=== PATIENT | male | born 1990 | race Caucasian/White ===

== ENCOUNTER 2022-01-23 22:47 | Emergency (ER) | payer BC, SELFPAY ==
--- NOTE | ~2022-01-23 | XR_ITS ---
XR clavicle LT, XR shoulder LT min 2V 01/23/2022 23:23 INDICATION: Left shoulder pain after fall. PROCEDURE: 2 views left clavicle and 4 views left shoulder COMPARISON: No prior studies for comparison. FINDINGS: Fracture, dislocation or subluxation is not identified. The soft tissues appear within norm al limits. No foreign bodies are identified. IMPRESSION: 1: NO ACUTE BONE OR JOINT ABNORMALITY IDENTIFIED. Reviewed, dictated and finalized at location A. IMPRESSION: 1: NO ACUTE BONE OR JOINT ABNORMALITY IDENTIFIED.
[2022-01-23 23:02] VITALS: BP 126/80; PULSE 89; RESP 18; TEMP 36.6; O2SAT 98
[2022-01-23] MEDS: KETOROLAC (*BKC) 60 MG/2 ML VIAL IM (23:30)
--- NOTE | 2022-01-23 23:36 | ED.UPPEXIN ---
HPI - Extremity Injury (Upper) General Chief Complaint: Extremity Injury, Upper Stated Complaint: left shoulder injury Source: patient Mode of arrival: ambulatory Limitations: no limitations History of Present Illness HPI narrative: this is a 31-year-old gentleman that presents with some left shoulder and clavicle discomfort and pain that he rates about an 8/10 has decreased range of motion in his left shoulder after he was injured while tackled playing football earlier today, did not take any medication for his pain has decreased range of motion there is some point tenderness in the distal clavicular area of his left shoulder. MD complaint: injury to: left Onset (ago): hour(s) Other Extremity Injury: Left: shoulder ( pain and decreased range of motion) Handedness: right Place: outdoors Severity: moderate Severity scale (1-10): 8 Relieving factors: immobilization Exacerbating factors: movement of extremity Context: fall Associated symptoms: denies other symptoms Related Data Allergies Allergy/AdvReac Type Severity Reaction Status Date / Time No Known Allergies Allergy Verified 01/23/22 22:58 Review of Systems Review of Systems: All systems reviewed & are unremarkable except as noted in HPI and below PMFSH Past Medical History Medical History Patient denies medical problems Exam Const: General: healthy appearing and no acute distress HENMT: Head: normal to inspection Ears: external ears normal General nose exam: Normal external nose present Eyes: Conjunctivae: conjunctivae normal EOM: EOMs intact bilaterally Neck: Neck: normal visual inspection, no lymphadenopathy and no meningeal signs Chest: Chest palpation & inspection: normal inspection of the chest Resp: Effort & Inspection: normal respiratory effort Auscultation: clear to auscultation bilaterally Cardio: Rate: regular rate Rhythm: regular rhythm GI: GI Palp: Yes Soft to palpation Auscultation: normal bowel sounds Skin: General skin exam: normal color Rashes: no rashes Wounds: no wounds Neuro: General: patient oriented x3 Cranial nerves: Yes Nystagmus not present Speech: normal speech Extrem: Other: decreased range of motion and tenderness in the lateral aspect of his left clavicle and upper shoulder area Psych: Mental Status: mental status grossly normal Affect: normal affect Course Course Emergency Course: x-rays reviewed show no acute fractures no dislocations, and will place patient in a sling and advise patient follow-up with primary care physician for further monitoring with possibly MRI. Vital Signs Vital signs: Vital Signs Temperature 36.6 C 01/23/22 23:02 Pulse Rate 89 01/23/22 23:02 Respiratory Rate 18 01/23/22 23:02 Blood Pressure 126/80 01/23/22 23:02 Pulse Oximetry 98 01/23/22 23:02 Oxygen Delivery Room Air 01/23/22 23:02 Temperature 36.6 C 01/23/22 23:02 Pulse Rate 89 01/23/22 23:02 Respiratory Rate 18 01/23/22 23:02 Blood Pressure 126/80 01/23/22 23:02 Pulse Oximetry 98 01/23/22 23:02 Oxygen Delivery Room Air 01/23/22 23:02 Critical Care Time Critical Care Time Critical Care Time: No Discharge Plan Discharge Clinical Impression: Rotator cuff strain Qualifiers: Encounter type: initial encounter Laterality: left Qualified Code(s): S46.012A - Strain of muscle(s) and tendon(s) of the rotator cuff of left shoulder, initial encounter Patient Disposition: Home, Self-Care Condition: Stable Instructions: Antibiotic Form, Rotator Cuff Injury (ED) Additional Instructions: take medicine as prescribed and follow-up with primary care physician within 1 week for further evaluation and treatment. Prescriptions: New tramadol [Ultram] 50 mg tablet 50 mg PO Q6H PRN (Reason: pain) Qty: 20 0RF Follow-up/Referrals: Teodoro Mandel M.D. [Primary Care Provider] - Time of Disposition: 23:42
[2022-01-23 23:51] VITALS: BP 120/71; PULSE 82; RESP 18; O2SAT 97
== END 2022-01-23 23:52 | disposition home or self-care (01) ==
PROVIDERS: Emergency Provider Emergency Medicine; PCP Family Medicine
DX: S46.012A Strain of muscle(s) and tendon(s) of the rotator cuff of left shoulder, initial encounter (principal)
CPT/HCPCS: 73000; 73030; 96372; 99283; A4565; J1885

== ENCOUNTER 2022-02-05 11:05 | Emergency (ER) | payer BC, SELFPAY ==
--- NOTE | ~2022-02-05 | CT_ITS ---
EXAMINATION: CT abdomen pelvis wo con DATE: 02/05/2022 12:12 INDICATION: Immature. Bilateral flank pain. Penile discharge. TECHNIQUE: Computed tomography (CT) of the abdomen and pelvis was performed without intravenous contr ast. Automated exposure control and iterative reconstruction technique were employed. The dose-length product was 376.98 mGy-cm. COMPARISON: None FINDINGS: 1. Bilateral small calcified pulmonary nodules in the bilateral lower lungs consistent with old granu lomatous disease. Heart size is normal. No pericardial or pleural effusion. Liver, gallbladder, splee n, pancreas and bilateral adrenal glands are normal. Kidneys and ureters are normal with no urolithia sis, hydroureteronephrosis or perinephric/ureteral stranding. Bowels including the appendix are peggy l. Bladder is unremarkable. No free intraperitoneal gas or fluid. No pathologically enlarged abdomina l or pelvic lymphadenopathy. Mild thoracolumbar spondylosis with a few Schmorl's nodes in the lower t horacic and upper lumbar spine. IMPRESSION: 1. No urolithiasis or acute intra-abdominal/pelvic process. Reviewed, dictated and finalized at location A.
[2022-02-05 11:18] VITALS: BP 124/79; PULSE 88; RESP 18; TEMP 37.2; O2SAT 99
--- NOTE | 2022-02-05 11:56 | ED.ABDPAIN ---
HPI - Abdominal Pain General Chief Complaint: Urogenital-Male Stated Complaint: Urinating blood Started today Time Seen by Provider: 02/05/22 11:09 Source: patient and RN notes reviewed Mode of arrival: ambulatory Limitations: no limitations History of Present Illness MD elicited complaint: abdominal pain and other (hematuria and penile d/c x 5 days.) Pertinent past history: none Onset (ago): day(s) (5) Pain Consistency: constant Location: R flank Severity: moderate Pain scale (0-10): 5 Quality: aching Radiation: R flank Migration to: no migration Exacerbating factors: nothing Relieving factors: nothing Associated symptoms: dysuria and hematuria Related Data Home Medications Medication Instructions Recorded Confirmed No Home Medications 02/05/22 02/05/22 Allergies Allergy/AdvReac Type Severity Reaction Status Date / Time No Known Allergies Allergy Verified 02/02/22 12:51 Review of Systems Review of Systems: All systems reviewed & are unremarkable except as noted in HPI and below Constitutional: Constitutional: Reports no additional constitutional complaints Eyes: Eyes: Reports no additional eye complaints ENT: Reports system reviewed and no additional complaints, except as documented Cardiovascular: Cardiovascular: Reports no additional cardiovascular complaints Respiratory: Respiratory: Reports no additional respiratory complaints Gastrointestinal: Gastrointestinal: Reports no additional gastrointestinal complaints Genitourinary: Genitourinary: Reports hematuria, Reports dysuria and Reports penile discharge Musculoskeletal: Musculoskeletal: Reports no additional musculoskeletal complaints Integumentary/Breasts: Skin/Breast: Reports system reviewed and no additional complaints, except as docu Neurologic: Reports system reviewed and no additional complaints, except as documented Psychiatric: Psychiatric: Reports no additional psychiatric complaints Endocrine: Endocrine: Reports no additional endocrine complaints Hematologic/Lymphatic: Hematologic/Lymphatic: Reports no additional hematologic/lymphatic complaints Allergic/Immunologic: Allergic/Immunologic: Reports no additional allergic/immunologic complaints PMFSH Past Medical History Medical History Dysuria Hematuria Patient denies medical problems Exam Const: General: healthy appearing, no acute distress and well nourished Nutritional Appearance: well nourished Orientation/consciousness: patient oriented x3 Limitations: no limitations HENMT: Head: normal to inspection Ears: external ears normal, TM's normal bilaterally and EAC's normal Face/Nose/Sinus: Normal external nose present, Normal nares present, normal facial exam and sinuses nontender Face and sinus: normal facial exam and sinuses nontender Mouth: Yes Normal oral and palatal mucosa present and Yes moist mucous membranes Teeth and gingiva: dentition normal Throat: posterior oropharynx normal Eyes: Conjunctivae: conjunctivae normal Pupils: Equal, round and reactive pupils present EOM: EOMs intact bilaterally Neck: Neck: normal visual inspection, no lymphadenopathy and no meningeal signs Chest: Chest palpation & inspection: normal inspection of the chest Resp: Effort & Inspection: normal respiratory effort Auscultation: clear to auscultation bilaterally Cardio: Rate: regular rate Rhythm: regular rhythm GI: GI Palp: Yes Soft to palpation and No Tenderness to palpation present (GI) Auscultation: normal bowel sounds : General: Yes bladder normal to palpation and Yes no CVA tenderness Back/Spine/Pelvis: Back: no CVA tenderness Skin: General skin exam: normal color Rashes: no rashes Wounds: no wounds Neuro: General: patient oriented x3, moves all extremities, no meningeal signs, no focal motor deficits and CN's II-XI intact bilaterally Cranial nerves: Yes Equal, round and reactive pupils present and Yes Nys
[2022-02-05 12:08] LABS: Appearance Urine Cloudy (Clear); Bilirubin Urine Negative (Negative); Blood Urine 3+ (Negative); Glucose Urine UA Negative (Negative); Ketones Urine Trace (Negative); Leukocyte Esterase Ur 2+ (Negative); Nitrate Urine Negative (Negative); Protein Urine Trace (Negative); Specific Grav Ur >= 1.030 (1.010-1.020); Urobilinogen Urine 0.2 mg/dL (0.2-1.0)
[2022-02-05 12:13] LABS: Add Urine Microscopic? YES; Bacteria Urine 2+ /hpf; Color Urine Amber (Yellow); RBC Urine >75 /hpf (0-2); Squamous Epithelial Cell Urine Rare /hpf (Few)
[2022-02-05] MEDS: SODIUM CHLORIDE 0.9% IV 1,000 ML 999 ML IV CONT (12:13)
[2022-02-05] MEDS: KETOROLAC (*BKC) 60 MG/2 ML VIAL IM (12:15)
[2022-02-05] MEDS: cefTRIAXone 1 GM, LIDOCAINE HCL 1% LOCAL INJ 2.1 ML IM (12:17)
[2022-02-05 12:39] LABS: Hematocrit 39.6 % (40.0-54.0); Hemoglobin 13.1 g/dL (14.0-18.0); Mean Corpuscular HGB Conc 33.1 g/dL (32.0-36.0); Mean Corpuscular Hemoglobin 29.6 pg (27.0-31.0); Mean Corpuscular Volume 89.4 fL (78.0-102.0); Platelet Count Result 195 K/mm3 (150-420); Red Blood Count 4.43 M/mm3 (4.70-6.10); Red Cell Distribution Width 13.5 % (11.6-14.4)
[2022-02-05 12:54] LABS: Alanine Aminotransferase 24 U/L (16-63); Albumin Level 3.2 g/dL (3.4-5.0); Alkaline Phosphatase 57 U/L (46-116); Anion Gap 5 mmol/L (8-16); Aspartate Amino Transferase 20 U/L (15-37); Bilirubin,Total 0.1 mg/dL (0.00-1.00); Blood Urea Nitrogen 12 mg/dL (7-18); Calcium 7.7 mg/dL (8.5-10.1); Carbon Dioxide 28 mmol/L (21-32); Chloride 109 mmol/L (98-108); Estimated CRCL calculation 104 ml/min; Estimated Glomerular Filt Rate > 60; Glucose 88 mg/dL (70-99); Lipase 85 U/L (73-393); Osmolality Calculated 292 mOsm/kg (285-295); Partial Thromboplastin Time 37.1 SEC (23.90-30.70); Prothrombin Time 10.9 Seconds (9.50-12.10); Sodium 142 mmol/L (136-145); Total Protein 5.8 g/dL (6.4-8.2)
[2022-02-05 13:05] VITALS: BP 128/74; PULSE 74; RESP 20; TEMP 36.6; O2SAT 98
[2022-02-05 13:06] LABS: Band Neutrophils Percent 0 % (0-6); Eosinophils Absolute Manual 0.12 K/mm3 (0.02-0.5); Eosinophils Percent Manual 4 % (1-6); Lymphocytes Absolute Manual 0.57 K/mm3 (1.1-4.5); Lymphocytes Percent Manual 19 % (18-44); Monocytes Absolute Manual 0.39 K/mm3 (0.1-0.90); Monocytes Percent Manual 13 % (3-9); Neutrophils Absolute Manual 1.89 K/mm3 (1.3-6.7); Neutrophils Percent Manual 63 % (46-73); Platelet Estimate Adequate (Adequate); Total Cells Counted 100
[2022-02-05 13:07] LABS: Schistocytes None Seen (NORMAL)
[2022-02-05 13:10] LABS: Lactic Acid Reflex 0.9 mmol/L (0.4-2.0)
--- NOTE | 2022-02-09 15:28 | PC.NURSE ---
spoke with pt due to his positive gc and chlamydia testing. pt is aware of results, his pmd Dr Mandel has contacted him and he is en route to the office for treatment. pt also reports he has hand written rx for zithromax and bactrim to which he has not filled. advised pt to fill rx and take them. that he would not be cleared for sexual activity for 7 days post full treatment. pt reports he will get them filled and take them.
== END 2022-02-05 13:10 | disposition home or self-care (01) ==
PROVIDERS: Emergency Provider Emergency Medicine; PCP Family Medicine
DX: N39.0 Urinary tract infection, site not specified (principal); R36.9 Urethral discharge, unspecified
CPT/HCPCS: 36415; 74176; 80053; 81001; 83605; 83690; 85025; 85610; 85730; 87491; 87591; 96360; 96372; 99284; J0696; J1885; J7030